=== PATIENT | male | born 1935 | race Caucasian/White ===

== ENCOUNTER → 2019-01-21 | Outpatient (CLI) | payer MEDICARE | END | disposition home or self-care (01) | LOC: RAD 11:45 | DX: M19.042 Primary osteoarthritis, left hand (principal) ==

== ENCOUNTER → 2019-02-18 | Outpatient (CLI) | payer MEDICARE | END | disposition home or self-care (01) | LOC: MRI 02:00 | DX: M19.042 Primary osteoarthritis, left hand (principal) ==